=== PATIENT | male | born 1980 | race Caucasian/White ===

== ENCOUNTER 2020-01-12 04:12 | Emergency (ER) | payer OTHER ==
[~2020-01-12] VITALS: Ht 175.3 cm; Wt 74.8 kg
[~2020-01-12 04:12] MED LIST: BACTRIM DS TAB1 EACH PO; DOXYCYCLINE 10100 MG PO; ERYTHROMYCIN250 MG PO; IBUPROFEN 800800 MG PO; LORTAB 5 MG/5001 TA1 PO; MOTRIN 600 MG600 M1 PO; NOHOMEMEDICATIONS; NORCO 5-325 TA1 EACH PO; NORFLEX100 MG PO; PEN VK; PENICILLIN VK250 MG PO; PENICILLIN VK500 M1 PO; PENICILLIN VK500 MG PO; RELAFEN500 MG PO; TRAMADOL 50 MG50 MG PO; ULTRAM 50MG TAB50 MG PO; VEETIDS 500500 MG PO
[2020-01-12] MEDS ORDERED: BACTRIM DS TAB1 EACH PO (05:01)
[2020-01-12] MEDS ORDERED: KEFLEX500 M1 PO (05:01)
[2020-01-12] MEDS ORDERED: MUPIROCIN15 GM TOP (05:01)
[2020-01-12 05:18] VITALS: BP 119/66
== END 2020-01-12 05:20 | disposition home or self-care (01) ==
LOC: M.ERS 04:12
DX: T25.222A Burn of second degree of left foot, initial encounter (principal); T25.221A Burn of second degree of right foot, initial encounter; T31.0 Burns involving less than 10% of body surface; L03.116 Cellulitis of left lower limb; L03.115 Cellulitis of right lower limb; Z86.14 Personal history of Methicillin resistant Staphylococcus aureus infection; X10.1XXA Contact with hot food, initial encounter; Y93.89 Activity, other specified; Y92.89 Other specified places as the place of occurrence of the external cause; Y99.8 Other external cause status